=== PATIENT | male | born 1990 | race American Indian/Alaskan Native ===

== ENCOUNTER 2017-02-15 00:53 | Emergency (ER) | payer SELFPAY ==
[2017-02-15] MEDS ORDERED: Sodium Chloride 0.9% 1,000 ML IV ONE (01:28)
[2017-02-15] MEDS ORDERED: Sodium Chloride 0.9% 250 ML IV ONE (01:50)
[2017-02-15] MEDS ORDERED: Belladonna-Phenobarbital PO STA (02:28)
[2017-02-15 02:32] LABS: BASO # 0.1 K/uL (0.0-0.2); BASO % 0.9 % (0.0-2.0); EOS # 0.3 K/uL (0.0-0.7); EOS % 4.7 % (0.0-4.0); LYMPH # 2.8 K/uL (1.0-4.3); LYMPH % 47.1 % (20.0-40.0); MEAN CELL VOLUME 84.9 fL (80.0-94.0); MEAN CORPUSCULAR HEMOGLOBIN 28.2 pg (27.0-31.0); MEAN CORPUSCULAR HGB CONC 33.2 g/dL (33.0-37.0); MEAN PLATELET VOLUME 9.8 fL (7.2-11.7); MONO # 0.5 K/uL (0.0-0.8); MONO % 8.4 % (0.0-10.0); NRBC % 0.1 % (0.0-2.0); WHITE BLOOD COUNT 5.9 K/uL (4.8-10.8)
[2017-02-15 02:36] LABS: RBC URINE 1 /hpf (0-3); URINE BILIRUBIN NEGATIVE (NEGATIVE); URINE BLOOD NEGATIVE (NEGATIVE); URINE COLOR Yellow (YELLOW); URINE GLUCOSE (UA) NORMAL (Normal); URINE KETONE NEGATIVE (NEGATIVE); URINE LEUKOCYTE ESTERASE 1+ Leu/uL (Negative); URINE PROTEIN NEGATIVE (NEGATIVE); URINE UROBILINOGEN NORMAL mg/dL (0.2-1.0); WBC URINE 8 /hpf (0-5)
[2017-02-15 02:36] LABS: CHLORIDE 100 mmol/L (98-107); POTASSIUM 4.2 mmol/L (3.6-5.2); SODIUM 138 mmol/L (132-148)
--- NOTE | 2017-02-15 02:36 | C.PDOC ---
History Of Present Illness 26 y/o male presents to ED with c/o abdominal pain and diarrhea since yesterday after eating out. Patient also complains of associated nausea but denies vomiting. Otherwise, denies fever, sick contacts, or recent travel. Time Seen by Provider: 02/15/17 01:26 Chief Complaint (Nursing): Abdominal Pain History Per: Patient History/Exam Limitations: no limitations Onset/Duration Of Symptoms: Days Current Symptoms Are (Timing): Still Present Context: Food Location Of Pain/Discomfort: Diffuse Radiation Of Pain To:: None Quality Of Discomfort: "Pain" Associated Symptoms: Nausea, Diarrhea. denies: Fever, Vomiting, Urinary Symptoms Recent travel outside of the [place]: No Past Medical History Reviewed: Historical Data, Nursing Documentation, Vital Signs Vital Signs: Last Vital Signs Temp 97.9 F 02/15/17 01:08 Pulse 86 02/15/17 01:08 Resp 20 02/15/17 01:08 BP 125/84 02/15/17 01:08 Pulse Ox 97 02/15/17 02:36 - Medical History PMH: No Chronic Diseases Family History: States: Unknown Family Hx - Social History Hx Alcohol Use: No Hx Substance Use: No - Immunization History Hx Tetanus Toxoid Vaccination: No Hx Influenza Vaccination: No Hx Pneumococcal Vaccination: No Review Of Systems Except As Marked, All Systems Reviewed And Found Negative. Constitutional: Negative for: Fever, Chills Respiratory: Negative for: Cough Gastrointestinal: Positive for: Nausea, Abdominal Pain, Diarrhea. Negative for : Vomiting, Constipation Genitourinary: Negative for: Dysuria Skin: Negative for: Rash Physical Exam - Physical Exam Appears: Non-toxic, No Acute Distress Skin: Normal Color, Warm, Dry Head: Atraumatic, Normacephalic Oral Mucosa: Moist Chest: Symmetrical Cardiovascular: Rhythm Regular Respiratory: Normal Breath Sounds, No Rales, No Rhonchi, No Wheezing Gastrointestinal/Abdominal: Soft, No Tenderness (no RLQ tenderness), No Distention, No Guarding, No Rebound Back: No CVA Tenderness Extremity: Normal ROM, Capillary Refill (< 2 sec. ) Neurological/Psych: Oriented x3, Normal Speech, Normal Cognition ED Course And Treatment - Laboratory Results Result Diagrams: 02/15/17 02:24 02/15/17 02:24 O2 Sat by Pulse Oximetry: 97 (RA) Pulse Ox Interpretation: Normal Progress Note: Treated with Pepcid, Zofran, , and IVFs. Bloodwork ordered and reviewed. Pt appears well, denies pain, tolerated PO. Abdomen remains soft and nontender. Labs results d/w pt and instructions given for diet , follow up. 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 - Scribe Statement The provider has reviewed the documentation as recorded by the Crista Castro Provider Scribe Attestation: All medical record entries made by the Crista were at my direction and personally dictated by me. I have reviewed the chart and agree that the record accurately reflects my personal performance of the history, physical exam, medical decision making, and the department course for this patient. I have also personally directed, reviewed, and agree with the discharge instructions and disposition.
[2017-02-15 02:39] LABS: ALB/GLOB RATIO 1.2 (1.0-2.1); ALKALINE PHOSPHATASE 52 U/L (38-126); ALT/SGPT 63 U/L (21-72); AST/SGOT 71 U/L (17-59); BILIRUBIN,TOTAL 0.4 mg/dL (0.2-1.3); BLOOD UREA NITROGEN 21 mg/dL (9-20); CALCIUM 8.6 mg/dl (8.6-10.4); CARBON DIOXIDE 27 mmol/L (22-30); GFR AFRICAN-AMERICAN > 60; GLUCOSE,RANDOM 92 mg/dL (75-110); TOTAL PROTEIN 7.6 g/dL (6.3-8.3)
[2017-02-15] MEDS ORDERED: Belladonna-Phenobarbital ONE ×2 (02:49→02:50)
[2017-02-15 03:24] VITALS: BP 108/67; PULSE 79; RESP 16; TEMP 98.1; O2SAT 98
== END 2017-02-15 03:24 | disposition home or self-care (01) ==
LOC: C.ER 00:53
DX: K52.9 Noninfective gastroenteritis and colitis, unspecified (principal)
CPT/HCPCS: 80053; 81001; 83690; 85025; 96361; 96374; 96375; 99284; J2405; J7040